=== PATIENT | female | born 1940 | race Caucasian/White ===

== ENCOUNTER 2017-01-23 16:38 | Outpatient (CLI) | payer MEDICARE, OTHER ==
--- NOTE | 2017-01-23 20:04 | XRAY Preliminary Report ---
Exam: XR Lumbar Spine 2 View IMPRESSION: 1. No evidence for acute fracture. 2. 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 Co rrelate clinically 3. Laminectomies at L3, L4 and L5. 4. Degenerative changes mild to severe as above. [facility] SITE ID: [id number]
--- NOTE | 2017-01-23 20:06 | XRAY Report ---
EXAM: LUMBOSACRAL SPINE RADIOGRAPHY EXAM DATE: 01/23/2017 04:57 PM. CLINICAL HISTORY: BONY TIP OVER LUMBAR SPINE ACUTE LOWER BACK PAIN,NO INJURY. COMPARISONS: None. TECHNIQUE: 3 views. FINDINGS: Severe degenerative disk disease with disk height loss and osteophytes at L2-L3 and L3-L4. Mild retrolisthesis of L3-L4 and mild anterolisthesis of L4-L5. Moderate degenerative disk disease at L4-L5 and L5-S1. Moderate degenerative disk disease at T12-L1 and mild degenerative disk disease at L1-L2. There appears to be moderate facet arthropathy from L2-S1. 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 Corre late clinically. Laminectomies at L3, L4 and L5. No acute fractures are seen. Mild levoscoliosis in the lumbar spine. Minimal bilateral sacroiliac degenerative joint disease. Bilateral hip arthroplasties. IMPRESSION: 1. No evidence for acute fracture. 2. 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 Co rrelate clinically 3. Laminectomies at L3, L4 and L5. 4. Degenerative changes mild to severe as above. [facility] Referring Provider Line: [phone] SITE ID: [id number]
== END 2017-01-23 16:39 | disposition home or self-care (01) ==
LOC: DI 16:38
PROVIDERS: ATTEND Physician Assistant
DX: M51.36 Other intervertebral disc degeneration, lumbar region (principal); M51.37 Other intervertebral disc degeneration, lumbosacral region; M51.35 Other intervertebral disc degeneration, thoracolumbar region; M47.896 Other spondylosis, lumbar region; M47.897 Other spondylosis, lumbosacral region; M43.16 Spondylolisthesis, lumbar region
CPT/HCPCS: 72100

== ENCOUNTER 2018-12-17 | Outpatient (CLI) | payer MEDICARE, OTHER | END 2018-12-17 12:48 | disposition home or self-care (01) | DX: G47.33 Obstructive sleep apnea (adult) (pediatric) (principal) | CPT/HCPCS: 99215; G0463; 99212 ==

== ENCOUNTER 2019-03-03 10:28 | Outpatient (CLI) | payer MEDICARE, OTHER ==
--- NOTE | 2019-03-03 13:18 | SLEEP CARE CONSULTATION ---
Information from patient questionnaire entered by Ijeoma Armstrong. I have reviewed and concur with the information entered by Ijeoma Armstrong. This document represents the service I personally performed and the decisions made by me, Glenroy Fernandez MD, [facility]. History of Present Illness Previous diagnosis: Severe, Obstructive Sleep Apnea-Hypopnea Syndrome AHI: 32.8 Equipment obtained from: [employer] Mask style: Nasal HPI additional information: HPI: Ms. Coker returned with her today for follow up of nasal CPAP therapy. She was diagnosed to have severe obstructive sleep apnea-hypopnea syndrome. The patient wears with a nasal mask. She reports using the device nightly and all through the night. She complained of no particular problem with the device such as soreness on the face, dry nose, epistaxis, nasal congestion or headache. She thinks that the pressure of 6 16 cmH2O is comfortable. On the CPAP therapy she notices improvement in her sleep quality, and that she wakes up feeling fresher in the morning and more awake/alert during the day. The [place] Sleepiness Scale score 3. Her notices no snore at all. The average residual AHI is 1.3; and air leak, 1.8 L/min. The 90th percentile pressure is 7.4 cmH2O. CPAP Compliance Data - Data Reviewed with Patient Average duration of nightly device use: 6.6 Compliance rate %: 97 Humidity settin Average residual AHI: 1.3 Subjective Patient concerns: reports: condensation in mask/hose Initial [place] Sleepiness Scale score: 1 Current [place] Sleepiness Scale score: 3 Allergies and Home Medications Drug allergies reviewed: Yes Home medication list reviewed: Yes Review of Systems Review of systems same as previous: Yes Impression and Plan IMPRESSION: 1. Obstructive Sleep Apnea-Hypopnea Syndrome, severe, with the patient doing well on nasal CPAP therapy. She has excellent compliance and significant clinical improvement. The current pressure appears effective and comfortable. The [employer] AirFit P-10 nasal pillows fit well. Overall, she is very satisfied with treatment and plans to continue with it long-term. No adjustment is necessary today. PLAN: 1. Continue with autoCPAP set at 6 - 16 cmH2O. 2. Try to lose some weight 3. Return in one year for follow up or earlier if there is any problem with the treatment. I spent 100% of this 20 minute visit face to face with the patient with greater than 50% of this was spent time counseling the patient and coordination of care.
== END 2019-03-03 10:29 | disposition home or self-care (01) ==
LOC: SC 10:28
PROVIDERS: ATTEND Internal Medicine Pulmonary Disease
DX: G47.33 Obstructive sleep apnea (adult) (pediatric) (principal)
CPT/HCPCS: 99213; G0463; 99212

== ENCOUNTER 2020-03-03 09:48 | Outpatient (CLI) | payer MEDICARE, OTHER ==
[2020-03-03 11:06] VITALS: BP 164/74
--- NOTE | 2020-03-03 11:06 | SLEEP CARE CONSULTATION ---
Information from patient questionnaire entered by Ijeoma Armstrong. I have reviewed and concur with the information entered by Ijeoma Armstrong. This document represents the service I personally performed and the decisions made by me, Julia Sharma, RN, MSN, [employer]. History of Present Illness Service Date and Time: 03/03/2020 0948 Previous diagnosis: Severe, Obstructive Sleep Apnea-Hypopnea Syndrome AHI: 32.8 (in 2014) Reason for follow up: annual (last seen 2019) Equipment type: CPAP Equipment obtained from: [employer] (getting supplies as needed) Mask style: Nasal pillows Backup mask available: No (keep current mask when replaced as a spare ) Last cushion change: 2 weeks ago Prior sleep studies: Yes Year and Where: 2014 - [place], [place] CPAP Compliance Data - Data Reviewed with Patient Average duration of nightly device use: 6.4 Compliance rate %: 88 (180 days) Current pressure setting (cmH2O): 6-16 Humidity settin Average residual AHI: 1.1 (median pressure 6.2cmH20 / 95th% 7.7 cmH20 ) Average large leak: 5.2 liters per min Subjective Missed days of use due to: reports: illness (reduced use when tried Pepcid to replace Zantac due to having to sleep in recliner chair due to reflux ) Patient concerns: reports: mask discomfort (stretching head gear - dislodges and leaks), mask leak noise, nasal congestion (chronic - past sinus surgery - ). denies: aerophagia, air blowing in eyes, condensation in mask/hose, dry mouth, nose, throat, epistaxis, other Observed to snore while using device: No (spouse deaf) Current pressure setting perceived as: comfortable On therapy, patient: reports: sleeping better, awakening more refreshed, being more awake and alert during the day, more rested overall. denies: drowsiness while driving Initial [place] Sleepiness Scale score: 1 (in 2019) Current [place] Sleepiness Scale score: 3 Allergies and Home Medications Known drug allergies: No Home medication list reviewed: Yes Allergy and home medication list: Norvasc 5mg daily Review of Systems Review of systems same as previous: No (Stopped ZAntac and Pepcid) Physical Exam Blood Pressure: 164/74 (patient monitors at home- 130-140 / 70- reports white coat syndrome) Cuff size: long Heart Rate: 63 O2 Saturation: 98 Height: 5 ft 6 in Weight: 183 lb 9.6 oz Weight change since last visit: lost 20 pounds Body Mass Index: 29.6 BMI Classification: Overweight Impression and Plan 1. Obstructive Sleep Apnea-Hypopnea Syndrome, severe, with good treatment c ompliance and good apnea control. On CPAP therapy, the patient has better sleep quality and is more rested overall. Since she is losing weight with goal of about 13 more pounds, I will adjust her autoCPAP pressure to [id number] to accommodate weight loss. She is to call me if any discomfort with change in pressure. She reports she is aware of portion control and healthy content to continue to lose weight. She does not feel she needs a diet consult at this time and advised to discuss with her PCP if unable to meet her weight loss goals for a referral to tailor helper. She was informed of symptoms to report for further adjustment for weight loss. To assist her to remember when to order supplies and when received she can put a small calender by her CPAP. She is encouraged to update her CPAP headgear and mask cushion for comfort and to reduce mask leaks. In addition, the headgear will be resized as patient feels it was too large even before stretching out. I reviewed rationale for Medicare questions re equipment replacement is for her to get what she needs and not too much. Nasal congestion can be reduced with increasing the CPAP humidity as shown on sample device. The heated hose can be adjusted higher if condensation with higher humidity setting. Saline nasal spray sample was also given to use prior to CPAP to clear nasal secretions and wash off any nasal allergens to facilitate nasal breathing. In addition, a steamy shower before bed will often assist nasal drainage. Patient's apnea severity and rationale for treatment to reduce apnea, improve sleep quality and reduce cardiovascular and cerebrovascular events was reviewed. I also reviewed the benefit of consistent device use of CPAP for hypertension. 2. Elevated blood pressure today in office and reports it is generally elevated in medical appointments. Patient states she monitors at home and is in normal range 130-140/70. Risks of untreated blood pressure reviewed. Advised to check again at home and contact her PCP if remains elevated with rationale discussed. * * Changeauto CPAP pressure to 5-10 cmH2O * Mask refitting * Implement methods to reduce nasal congestion. * Notify me if snoring with mask or feeling that the pressure is too much or too little * Continue to lose weight * Call this office if any problems using CPAP * Return for follow up in 1 year , or sooner if concerns arise Visit Type: In Office Time Spent with Patient (minutes): 35 Provider Statement: I spent 100% of the Face to Face Visit with the patient with greater than 50% spent counseling the patient and coordination of care.
== END 2020-03-03 09:49 | disposition home or self-care (01) ==
LOC: SC 09:48
PROVIDERS: ATTEND Nurse Practitioner Family
DX: G47.33 Obstructive sleep apnea (adult) (pediatric) (principal); R03.0 Elevated blood-pressure reading, without diagnosis of hypertension; E66.3 Overweight; Z68.29 Body mass index [BMI] 29.0-29.9, adult
CPT/HCPCS: 99214; G0463; 99212

== ENCOUNTER 2021-03-01 09:22 | Outpatient (CLI) | payer MEDICARE, OTHER ==
--- NOTE | 2021-03-01 09:48 | SLEEP CARE CONSULTATION ---
Information from patient questionnaire entered by Dulce Gillis. I have reviewed and concur with the information entered by Dulce Gillis. This document represents the service I personally performed and the decisions made by , Chanelle George ARNP. History of Present Illness Service Date and Time: 03/01/2021 0920 Previous diagnosis: Severe, Obstructive Sleep Apnea-Hypopnea Syndrome AHI: 32.8 (in 2014) Reason for follow up: annual Equipment type: CPAP Equipment obtained from: [employer] (getting supplies as needed) Mask style: Nasal pillows Backup mask available: Yes (old mask) Last cushion change: Saturday Prior sleep studies: Yes Year and Where: 2014 - [place], [place] HPI additional information: VIVI KUMARI was diagnosed to have severe, AHI 32.8, obstructive sleep apnea- hypopnea syndrome and returns via video Telehealth visit today for CPAP therapy annual follow-up. Sleep Study - Results Prior sleep studies: Yes Year and Where: 2014 - [place], [place] CPAP Compliance Data - Data Reviewed with Patient Average duration of nightly device use: 6 hours 24 minutes Compliance rate %: 87 Current pressure setting (cmH2O): 5-10 Average residual AHI: 1 Central apnea: .6 Obstructive apnea: .2 Hypopnea: .1 Subjective Patient concerns: denies: aerophagia, mask discomfort, air blowing in eyes, mask leak noise, condensation in mask/hose, nasal congestion, dry mouth, nose, throat, epistaxis, other Observed to snore while using device: No Current pressure setting perceived as: too low On therapy, patient: reports: sleeping better, awakening more refreshed, being more awake and alert during the day, more rested overall. denies: drowsiness while driving Initial [place] Sleepiness Scale score: 1 (in 2018) Current [place] Sleepiness Scale score: 4 Allergies and Home Medications Home medication list reviewed: Yes Allergy and home medication list: Amlodipine Valsartan Review of Systems Review of systems same as previous: No (back surgery in March 2021) Physical Exam Vital signs obtained and entered by: Telehealth visit limit exposure during Covid pandemic Height: 5 ft 6 in Weight: 184 lb (per patient) Body Mass Index: 29.7 BMI Classification: Overweight Impression and Plan 1. Obstructive Sleep Apnea-Hypopnea Syndrome, severe, with good treatment compliance and good apnea control. On CPAP therapy, the patient has better sleep quality and is more rested overall. Patient feels that her pressure is too low and would like it changed back to 10 cmH2O. She states it felt better when it was at this pressure. Her current 95 percentile is at 7.3 with a maximum of 8.3 cmH2O. I will adjust her APAP pressure to 9-10 cmH2O for patient comfort. Patient advised to contact me if pressure change is uncomfortable so that it can be adjusted. Goals for apnea control discussed. Patient is satisfied with current CPAP therapy. Patient has no concerns or issues with CPAP mask use. Patient states she has not been trying to lose weight and is currently at 184 pounds. Patient was encouraged to lose weight for their overall health and to reduce apneas. Patient's apnea severity and rationale for treatment to reduce apnea, improve sleep quality and reduce cardiovascular and cerebrovascular events was reviewed. I also reviewed the benefit of consistent device use of CPAP for hypertension. * Change auto CPAP pressure to 9-10 cmH2O * Notify me if snoring with mask or feeling that the pressure is too much or too little * Attempt to lose weight * Call this office if any problems using CPAP * Return for follow up in 1 year, or sooner if concerns arise Counseling Topics: Spare mask, Weight loss health impact Visit Type: Telehealth Video Video Type: VSee Patient Location: Home Location of Provider: Office Patient agrees and consents to this telehealth visit type: Yes Patient agrees to have their insurance billed: Yes Time Spent with Patient (minutes): 14 Provider Statement: I spent 100% of the Telehealth Video Call with the patient with greater than 50% spent counseling the patient and coordination of care.
== END 2021-03-01 09:23 | disposition home or self-care (01) ==
LOC: SC 09:22
PROVIDERS: ATTEND Nurse Practitioner Family
DX: G47.33 Obstructive sleep apnea (adult) (pediatric) (principal)